=== PATIENT | female | born 1970 | race Caucasian/White ===

== ENCOUNTER 2019-12-27 07:47 | Day surgery (SDC) | payer OTHER ==
[2019-12-27 08:18] VITALS: PULSE 82; BMI 30.8
[2019-12-27] MEDS ORDERED: BUPIVACAINE HCL/PF 0.25% (2.5MG/ML) 10 ML VIAL ONE (09:19)
[2019-12-27] MEDS ORDERED: MIDAZOLAM HCL 2 MG/2 ML SINGLE DOSE VIAL ONE (09:19)
[2019-12-27] MEDS ORDERED: LIDOCAINE HCL 1%, 10 MG/ML (20ML VIAL) ONE (09:19)
[2019-12-27 10:52] VITALS: TEMP 97.6
[2019-12-27 10:59] VITALS: BP 98/67
--- NOTE | 2019-12-29 15:59 | OP ---
DATE OF OPERATION: 12/27/2019 SURGEON: Chong Ramirez MD CHEMICAL EQUIPMENT CONTROLLER: LOREN King PREOPERATIVE DIAGNOSIS: Left carpal tunnel syndrome. POSTOPERATIVE DIAGNOSIS: Left carpal tunnel syndrome. PROCEDURE: Left carpal tunnel release, CPT code 34374. FINDINGS: Thickened transcarpal ligament over the median nerve. PROCEDURE: Under sterile conditions, the upper extremity was prepped and draped in a sterile fashion. Incision was made along the longitudinal portion of the carpal tunnel. A longitudinal incision was made along the proximal portion of the palm, following the palm crease. This was taken down to the transcarpal ligament, which was released initially with scalpel and then extended proximally and distally using blunt tenotomy scissors. The median nerve was identified and completely released from impingement by the transcarpal ligament. The wound was then irrigated with copious amounts of irrigation. Skin was closed with 5-0 nylon in single interrupted sutures. The PA listed above was present and assisted at surgery. Their presence was absolutely medically necessary for the completion of the procedure. They helped hold the arthroscopy, pass instruments (and implants when indicated) and the procedure could not have been completed without their assistance. The PA listed above was present and assisted at surgery. Their presence was absolutely medically necessary for the completion of the procedure. They helped hold the arthroscopy, pass instruments (and implants when indicated) and the procedure could not have been completed without their assistance. CHONG RAMIREZ M.D. [id number]
== END 2019-12-27 11:15 | disposition home or self-care (01) ==
LOC: FASU 07:47
PROVIDERS: ATTEND Orthopaedic Surgery
PROC: 01N50ZZ Release Median Nerve, Open Approach (ICD-10-PCS; principal; 2019-12-27 09:46)
DX: G56.02 Carpal tunnel syndrome, left upper limb (principal)
CPT/HCPCS: 84703

== ENCOUNTER 2020-01-03 10:06 | Day surgery (SDC) | payer OTHER ==
[2020-01-02 13:57] VITALS: BMI 31.3
[2020-01-03] MEDS ORDERED: LIDOCAINE HCL 1%, 10 MG/ML (20ML VIAL) ONE (11:34)
[2020-01-03] MEDS ORDERED: PROPOFOL 20 ML ONE ×2 (11:57)
[2020-01-03] MEDS ORDERED: MIDAZOLAM HCL 2 MG/2 ML SINGLE DOSE VIAL ONE (11:57)
[2020-01-03] MEDS ORDERED: LIDOCAINE HCL/PF 2% SDV 5ML VIAL ONE (11:57)
[2020-01-03] MEDS ORDERED: ceFAZolin SODIUM 1 GM VIAL ONE (12:14)
[2020-01-03] MEDS ORDERED: DEXAMETHASONE SOD PHOSPHATE 4 MG/1 ML VIAL ONE ×2 (12:31)
[2020-01-03] MEDS ORDERED: KETOROLAC TROMETHAMINE 30 MG/1 ML VIAL ONE (14:20)
[2020-01-03] MEDS ORDERED: oxyCODONE HCL 5 MG TABLET PO PRN (14:42)
[2020-01-03] MEDS ORDERED: ACETAMINOPHEN 1000 MG/100 ML VIAL (NON FORMULARY) IVPB ONE (14:43)
[2020-01-03] MEDS ORDERED: LACTATED RINGERS SOLUTION 1,000 ML IV SCH (14:45)
[2020-01-03] MEDS ORDERED: oxyCODONE HCL 5 MG TABLET ONE (16:23)
[2020-01-03 17:19] VITALS: BP 122/61; PULSE 77; TEMP 97.1
--- NOTE | 2020-01-09 17:51 | PATH ---
Surgical Pathology Report Patient Name: CARSON CARTER [facility]. Rec. #: [id number] /Age/Gender: 1970 (Age: 49) / F Account: [id number] Location: [facility] SURGICAL Taken: 01/03/2020 Received: 01/06/2020 Reported: 01/09/2020 Physicians: Beto Gallegos DPM Specimen(s) Received A: NEUROMA LEFT FOOT B: LIPOMA LEFT FOOT Clinical History Excision of soft tissue mass left foot Final Diagnosis A. "NEUROMA", FOOT, LEFT, EXCISION: PLANTAR FIBROMATOSIS. SEE COMMENT. B. LIPOMA, FOOT, LEFT, EXCISION: ANGIOLIPOMA. Comment: Part A, Immunohistochemical stains performed and interpreted at [facility] shows weak non-specific staining for S100; while negative for AE1/3. Additional immunohistochemical stains performed at [place], [place] ([id number]) and interpreted at [facility] showed the lesion is positive for vimentin, SMA, B-catenin, and desmin (focal). SHIRLEY, CD34, and SOX-10 stains are negative. The above immunophenotype supports the diagnosis. Positive and negative controls (internal if applicable) show appropriate results. Electronically Signed Anne Handley M.D. Gross Description A. Received in formalin labeled "neuroma of left foot" are 3 cardona-yellow soft tissue fragments ranging from 0.8 x 0.6 x 0.3 cm to 1.4 x 0.8 x 0.7 cm. The larger portions are sectioned and the specimen is entirely submitted in one cassette. B. Received in formalin labeled "lipoma of left foot" is a 3.0 x 1.5 x 0.7 cm cardona-yellow, irregular portion of soft tissue. Sectioning reveals cardona-yellow, smooth parenchyma. [employer] sections are submitted in one cassette. DL/01/06/2020 saudi/01/06/2020
--- NOTE | 2020-01-14 16:50 | OP ---
DATE OF OPERATION: 01/03/2020 DIAGNOSIS: Lipoma left foot, neuroma left foot, mild tear of plantar plate with long second metatarsal. PROCEDURE: Excision of lipoma left foot, excision of neuroma left foot, Billie osteotomy left foot. SURGEON: Beto Gallegos DPM. HEMOSTASIS: Tourniquet inflated to 250 mmHg. ANESTHESIA: General. DESCRIPTION OF PROCEDURE: The patient was prepped and draped in the usual aseptic manner and brought to the OR in stable condition where general anesthesia was administered followed by local infiltrative block. Upon achieving complete anesthesia, the ankle tourniquet was inflated to 250 mmHg for hemostasis. Attention was initially directed to the lateral aspect of the left foot where a linear incision was made over the lateral aspect of the 5th metatarsal head directed plantarly. Utilizing blunt and sharp dissection, the lipoma was mobilized and excised in toto. The wound was then flushed out with copious amounts of sterile bacteriostatic water. The skin was closed with 3-0 Vicryl, 4-0 Vicryl, and 4-0 nylon suture in a horizontal mattress technique. Attention was then directed to the dorsal aspect of the left foot at the level of the 3rd interspace where a linear incision was made for excision of the painful neuroma. Once the skin incision was made utilizing blunt dissection initially the intermetatarsal ligament was then transected; utilizing plantar pressure, the neuroma was elevated into the operative site. Combining blunt and sharp dissection the entire neuroma lesion was mobilized and then dissected from its anatomical position and sent to pathology. At this time the wound was then flushed out with copious amounts of sterile bacteriostatic water and then skin was closed with 3-0 Vicryl, 4-0 Vicryl, and 4-0 nylon suture. At this time, attention was directed to the dorsal aspect of the left 2nd metatarsophalangeal joint for correction of a plantar plate pain, long 2nd metatarsal. The skin incision was made over the dorsal aspect of the metatarsophalangeal joint. At this time, the extensor tendon was identified and then retracted laterally for exposure to the metatarsal and the capsule and joint. Utilizing a sterile 15-blade, a linear incision was made over the dorsal aspect of the metatarsal shaft head and extended to the base of the proximal phalanx. The periosteum and capsule were reflected medially and laterally thereby exposing the joint. At this time, a Billie osteotomy was performed utilizing a power microsagittal saw and the plantar fragment was temporarily fixated with a 0.062 K-wire. At this time, the plantar plate was then visually inspected and noted to be in excellent approximation and appearing healthy at its attachment to the base of the proximal phalanx. It was at this time that decision was made to not transect the plantar plate from the base of the proximal phalanx in order to reattach it as it clinically appeared to be healthy and in proper position. At this time the head of the metatarsal was then pulled proximally but left 2-3 mm shorter in order to prevent direct pressure on top of the plate in effort to address her discomfort. Once this was accomplished, the head was fixated with a 2-0 snap off screw. The wound was then flushed out with copious amounts of sterile bacteriostatic water and then the capsule and deep layers were closed utilizing a combination of 3-0 Vicryl, 4-0 Vicryl, and 4-0 nylon suture. Postoperative of 15 mL of Marcaine plain 0.25% was then administered. At this time, the ankle tourniquet was then deflated, and there was an instantaneous hyperemic response noted to return to all digits of the operative foot. Application of Adaptic and dry sterile dressing was then applied to the left forefoot covering all wounds and incisions and then reinforced with a CoFlex bandage. Patient was stable throughout the entire procedure and left the operating room in stable condition to PACU where verbal and oral postoperative instructions were given. BETO GALLEGOS DPM [id number]
== END 2020-01-03 17:55 | disposition home or self-care (01) ==
LOC: JASU-SURG 10:06
PROVIDERS: ATTEND Podiatrist Foot Surgery
PROC: 0JBR0ZZ Excision of Left Foot Subcutaneous Tissue and Fascia, Open Approach (ICD-10-PCS; 2020-01-03)
PROC: 01BG0ZZ Excision of Tibial Nerve, Open Approach (ICD-10-PCS; principal; 2020-01-03 12:00)
DX: D48.1 Neoplasm of uncertain behavior of connective and other soft tissue (principal); D36.13 Benign neoplasm of peripheral nerves and autonomic nervous system of lower limb, including hip; M21.072 Valgus deformity, not elsewhere classified, left ankle; S93.692A Other sprain of left foot, initial encounter; X58.XXXA Exposure to other specified factors, initial encounter; Y93.9 Activity, unspecified; Y92.89 Other specified places as the place of occurrence of the external cause; Y99.9 Unspecified external cause status
CPT/HCPCS: 76000-TC-FY; 84703; 88304-TC; 88307-TC; 88341-TC; 88342-TC; 94760

== ENCOUNTER → 2020-05-08 | Day surgery (SDC) | payer OTHER ==
[2020-05-07 15:44] VITALS: BMI 31.6
[~2020-05-08] MED LIST: ACETAMINOPHEN 325 MG TABLET (FP) PO PRN; BENZOIN/ALOE VERA/STORAX/TOLU 58 ML BOTTLE ONE; BUPIVACAINE HCL/PF 0.5% (5 MG/ML) 30 ML VIAL IJ ONE; DEXAMETHASONE SOD PHOSPHATE 4 MG/1 ML VIAL NR ONE; DEXAMETHASONE SOD PHOSPHATE 4 MG/1 ML VIAL ONE; KETOROLAC TROMETHAMINE 30 MG/1 ML VIAL ONE; LACTATED RINGERS SOLUTION 1,000 ML IV SCH; LIDOCAINE HCL 1%, 10 MG/ML (20ML VIAL) NR ONE; MIDAZOLAM HCL 2 MG/2 ML SINGLE DOSE VIAL ONE; ONDANSETRON 4 MG/2 ML VIAL IVPUSH PRN; PROPOFOL 20 ML ONE; oxyCODONE HCL 5 MG TABLET PO PRN
[2020-05-08 18:25] VITALS: BP 106/64; PULSE 64; TEMP 96.2
== END | disposition home or self-care (01) ==
LOC: JASU-SURG 04:34
PROVIDERS: ATTEND Podiatrist Foot Surgery
PROC: 0YPB0YZ Removal of Other Device from Left Lower Extremity, Open Approach (ICD-10-PCS; principal; 2020-05-08 16:00)
DX: T84.84XA Pain due to internal orthopedic prosthetic devices, implants and grafts, initial encounter (principal)
CPT/HCPCS: 84703; 88304-TC

== ENCOUNTER 2021-09-03 07:28 | Day surgery (SDC) | payer OTHER ==
[2021-09-03] MEDS ORDERED: MIDAZOLAM HCL 2 MG/2 ML SINGLE DOSE VIAL ONE (09:50)
[2021-09-03] MEDS ORDERED: PROPOFOL 20 ML ONE (09:50)
[2021-09-03] MEDS ORDERED: methylPREDNISolone ACET (DEPO) 40 MG/1 ML VIAL ONE (09:57)
[2021-09-03] MEDS ORDERED: LIDOCAINE HCL 1%, 10 MG/ML (20ML VIAL) ONE (09:58)
[2021-09-03] MEDS ORDERED: BUPIVACAINE HCL/PF 2.5 MG/ML - 30 ML VIAL IJ ONE (10:14)
[2021-09-03] MEDS ORDERED: ONDANSETRON 4 MG/2 ML VIAL IVPUSH PRN (11:03)
[2021-09-03] MEDS ORDERED: oxyCODONE HCL 5 MG TABLET PO PRN ×2 (11:03)
[2021-09-03] MEDS ORDERED: LACTATED RINGERS SOLUTION 1,000 ML IV SCH (11:15)
[2021-09-03] MEDS ORDERED: ONDANSETRON *ODT* 4 MG TABLET ONE (13:22)
[2021-09-03 14:23] VITALS: TEMP 98.1
[2021-09-03 14:35] VITALS: BP 114/69; PULSE 82
== END 2021-09-03 13:50 | disposition home or self-care (01) ==
LOC: FASU 07:28
PROVIDERS: ATTEND Orthopaedic Surgery
PROC: 0SBC4ZZ Excision of Right Knee Joint, Percutaneous Endoscopic Approach (ICD-10-PCS; 2021-09-03)
PROC: 0SBC4ZZ Excision of Right Knee Joint, Percutaneous Endoscopic Approach (ICD-10-PCS; principal; 2021-09-03 10:43)
DX: S83.241A Other tear of medial meniscus, current injury, right knee, initial encounter (principal); S83.281A Other tear of lateral meniscus, current injury, right knee, initial encounter; S83.8X1A Sprain of other specified parts of right knee, initial encounter; M65.861 Other synovitis and tenosynovitis, right lower leg; X58.XXXA Exposure to other specified factors, initial encounter; Y93.9 Activity, unspecified; Y92.9 Unspecified place or not applicable
CPT/HCPCS: 94760; Q0162

== ENCOUNTER 2022-12-29 06:16 | Day surgery (SDC) | payer OTHER ==
[2022-12-23 09:20] VITALS: BMI 30.8
[2022-12-29 06:43] VITALS: RESP 18; TEMP 98
[2022-12-29] MEDS ORDERED: LIDOCAINE HCL 1%, 10 MG/ML (20ML VIAL) ONE (07:09)
[2022-12-29] MEDS ORDERED: MIDAZOLAM HCL 2 MG/2 ML SINGLE DOSE VIAL ONE (07:28)
[2022-12-29] MEDS ORDERED: SUCCINYLCHOLINE CHLORIDE 200 MG/10 ML SYRINGE ONE (07:32)
[2022-12-29] MEDS ORDERED: PROPOFOL 20 ML ONE ×3 (07:32→07:52)
[2022-12-29 09:09] VITALS: BP 114/77; PULSE 64
== END 2022-12-29 09:15 | disposition home or self-care (01) ==
LOC: FASU 06:16
PROVIDERS: ATTEND Orthopaedic Surgery
PROC: 0LN70ZZ Release Right Hand Tendon, Open Approach (ICD-10-PCS; 2022-12-29)
PROC: 0LN80ZZ Release Left Hand Tendon, Open Approach (ICD-10-PCS; principal; 2022-12-29 07:58)
DX: M65.332 Trigger finger, left middle finger (principal); M65.331 Trigger finger, right middle finger